=== PATIENT | male | born 1995 | race Caucasian/White ===

== ENCOUNTER 2019-11-18 18:18 | Emergency (ER) | payer SELFPAY ==
--- NOTE | 2019-11-18 19:02 | RAD ---
Exam:3 views left HISTORY: Pain and injury. Hand got caught in gate. COMPARISON: None FINDINGS: Soft tissue injury involving the nailbed of the fifth digit. Possible avulsion of the nail. No fracture, cortical irregularity or periosteal reaction. IMPRESSION: Injury to the fifth nail bed. No fracture.
[2019-11-18] MEDS ORDERED: Lidocaine 1% (PF) 30 ML VIAL ONE (20:49)
== END 2019-11-18 22:24 | disposition home or self-care (01) ==
LOC: ERS 18:18
DX: S67.197A Crushing injury of left little finger, initial encounter (principal); S61.317A Laceration without foreign body of left little finger with damage to nail, initial encounter; F41.9 Anxiety disorder, unspecified; F32.9 Major depressive disorder, single episode, unspecified; X58.XXXA Exposure to other specified factors, initial encounter
CPT/HCPCS: 11760; J2001

== ENCOUNTER 2020-06-28 20:04 | Emergency (ER) | payer OTHER, SELFPAY ==
[2020-06-28] MEDS ORDERED: Azithromycin 250 MG TAB ONE (23:07)
[2020-06-28] MEDS ORDERED: Boostrix 0.5 ML (Tdap) VIAL ONE (23:07)
== END 2020-06-28 23:11 ==
LOC: ERS 20:04
DX: S01.511A Laceration without foreign body of lip, initial encounter (principal); S05.11XA Contusion of eyeball and orbital tissues, right eye, initial encounter; F17.200 Nicotine dependence, unspecified, uncomplicated; Y04.2XXA Assault by strike against or bumped into by another person, initial encounter
CPT/HCPCS: 70450; 70486; 71045; 72125; 90715

== ENCOUNTER 2020-07-21 23:21 | Emergency (ER) | payer SELFPAY ==
[2020-07-22] MEDS ORDERED: Lidocaine 1% PF 5 ML VIAL ONE (00:09)
[2020-07-22] MEDS ORDERED: Boostrix 0.5 ML (Tdap) VIAL ONE (00:14)
== END 2020-07-22 01:10 ==
LOC: ERS 23:21
DX: S01.511A Laceration without foreign body of lip, initial encounter (principal); Y04.8XXA Assault by other bodily force, initial encounter; F17.210 Nicotine dependence, cigarettes, uncomplicated
CPT/HCPCS: 12051; 70450; 90471; 90715

== ENCOUNTER 2021-02-24 00:15 | Inpatient (IN) | payer SELFPAY ==
[2021-02-24 03:02] LABS: SARS-CoV-2 NAA Rapid Test Not Detected (NotDetected)
[2021-02-24] MEDS ORDERED: Bacitracin Zinc Ointment 30 gm TUBE ONE (03:29)
[2021-02-24] MEDS ORDERED: Neomycin-Polymyxin 1 ML AMP ONE (03:29)
[2021-02-24] MEDS ORDERED: Fentanyl 100 MCG/2 ML VIAL ONE (03:41)
[2021-02-24] MEDS ORDERED: Acetaminophen 325 MG TAB PO PRN (05:11)
[2021-02-24] MEDS ORDERED: traMADol HCl 50 MG TAB PO PRN (05:11)
[2021-02-24] MEDS ORDERED: Morphine 4 MG/ML VIAL SLOW IVP PRN (05:11)
[2021-02-24] MEDS ORDERED: Fentanyl 100 MCG/2 ML VIAL SLOW IVP PRN (05:11)
[2021-02-24] MEDS ORDERED: Promethazine HCl 25 MG/ML VIAL IM PRN (05:11)
[2021-02-24] MEDS ORDERED: HYDROcodone/Acetaminophen 5/325 mg Tablet PO PRN (05:11)
[2021-02-24] MEDS ORDERED: Ondansetron PF 4 MG/2 ML Vial IVP PRN (05:11)
[2021-02-24] MEDS ORDERED: Ketorolac Tromethamine 30 MG/ML VIAL IVP PRN (05:13)
[2021-02-24] MEDS ORDERED: Meperidine HCl/PF 25 MG/ML VIAL IM PRN (05:13)
[2021-02-24] MEDS ORDERED: Sodium Chloride 0.9% 100 ML IV SCH (05:15)
[2021-02-24] MEDS ORDERED: Communication Order-Pharmacy FS PRN (05:15)
[2021-02-24] MEDS ORDERED: TETANUS AND DIPHTHERIA TOX/PF 0.5 ML DISP.SYRIN IM SCH (05:15)
[2021-02-24] MEDS ORDERED: Ondansetron PF 4 MG/2 ML Vial ONE (05:23)
[2021-02-24] MEDS ORDERED: diphenhydrAMINE 50 MG/ML VIAL ONE (05:23)
[2021-02-24] MEDS ORDERED: PROPOFOL 200 MG/20 ML VIAL ONE (05:23)
[2021-02-24] MEDS ORDERED: Succinylcholine 200 MG/10 ml SYRINGE FS ONE (05:23)
[2021-02-24] MEDS ORDERED: Lidocaine 1% PF 5 ML VIAL ONE (05:23)
[2021-02-24] MEDS ORDERED: Dexamethasone 20 MG/5 ML VIAL ONE (05:23)
[2021-02-24] MEDS ORDERED: Gentamicin 80 MG/2 ML VIAL ONE (05:55)
[2021-02-24] MEDS ORDERED: Bupivacaine PF 0.5% 30 ML VIAL ONE (06:33)
[2021-02-24] MEDS ORDERED: Dexmedetomidine 200 MCG/2 ML VIAL ONE (06:50)
[2021-02-24] MEDS ORDERED: Aspirin 81 mg Enteric Coated Tablet PO SCH (09:00)
[2021-02-24] MEDS ORDERED: Vancomycin 1 GM in Premix Bag 1 BAG IVPB SCH (09:00)
[2021-02-24] MEDS ORDERED: HYDROcodone/Acetaminophen 5/325 mg Tablet ONE (09:43)
== END 2021-02-24 10:59 | disposition home or self-care (01) | DRG 517 ==
LOC: ERS 00:15 → ERHOLD 05:11 → SURG A 07:11
PROVIDERS: ADMIT Orthopaedic Surgery Hand Surgery; ATTEND Orthopaedic Surgery Hand Surgery
PROC: 01Q40ZZ Repair Ulnar Nerve, Open Approach (ICD-10-PCS; principal; 2021-02-24)
PROC: 0CQM0ZZ Repair Pharynx, Open Approach (ICD-10-PCS; 2021-02-24)
DX: S62.617B Displaced fracture of proximal phalanx of left little finger, initial encounter for open fracture (principal); Z20.822 Contact with and (suspected) exposure to COVID-19; S64.01XA Injury of ulnar nerve at wrist and hand level of right arm, initial encounter
CPT/HCPCS: 76000; J1100; J1200; J1580; J2405; J2704; J3010; S0020; U0002